=== PATIENT | male | born 1970 | race Caucasian/White ===

== ENCOUNTER → 2017-08-08 | Day surgery (SDC) | payer BC ==
[~2017-08-08] MED LIST: Acetaminophen/HYDROcodone 325-5 MG Tab PO PRN; Atropine 0.4 MG/ML SDV ONE; Lactated Ringers 1,000 ML IV SCH; Morphine 2 MG/ML Syringe IVPUSH PRN; Ondansetron 4 MG/2 ML SDV IVPUSH PRN; Propofol 200 MG/20 ML SDV ONE; Rocuronium 50 MG/5 ML Vial ONE; ceFAZolin 1 GM Vial ONE; ceFAZolin 1 GM in Sodium Chloride 0.9% 50 ML IV SCH; fentaNYL 250 MCG/5 ML SDV ONE
--- NOTE | 2017-08-08 16:51 | OR ---
DATE OF OPERATION: 08/08/2017 PREOPERATIVE DIAGNOSIS: Incarcerated umbilical hernia. POSTOPERATIVE DIAGNOSIS: Incarcerated umbilical hernia. OPERATION: Open umbilical herniorrhaphy, primary. COMPLICATIONS: None. DRAINS: None. SPECIMENS: None. ESTIMATED BLOOD LOSS: Approximately 5 mL. ANESTHESIA: General endotracheal anesthesia. PRODUCE TEAM MEMBER: Jennifer Butcher. INDICATION: Mr. Jones is a 46-year-old gentleman who has had a longstanding umbilical hernia which he feels has increased in size and can cause some discomfort from time to time. He has requested repair. The above-mentioned procedure was explained. The risks, benefits, complications were explained. Patient understood, and agreed. He was brought to the operating room. DESCRIPTION OF PROCEDURE: The patient was brought to the operating room, placed supine on the operating room table. Satisfactory general endotracheal anesthesia was administered. Preoperative antibiotics and DVT prophylaxis were administered. The abdomen was then prepped and draped in sterile fashion including the umbilicus. We made a semicircular infraumbilical incision and subsequently deepened down the tissues with Bovie electrocautery down to the level of the subcutaneous tissues. In doing so, we were able to easily identify the umbilical hernia sac. The sac was then easily dissected away from the subcutaneous tissues with a simple finger dissection as well as with [employer] Endo Adebayo. I was able to take the sac away from the skin using Metzenbaum Endo Adebayo as well as with Bovie electrocautery. Once this was released, we then circumferentially went around the sac using Bovie electrocautery and Metzenbaum Endo Adebayo and maintained hemostasis with Bovie electrocautery to clear away some of the tissue from the fascia. The neck of the sac was identified and the sac was then dissected along its neck to reveal preperitoneal fat. The preperitoneal fat was then very easily pushed down back into the belly including the hernia sac which was quite loose and this was easily accomplished. Hemostasis was achieved with Bovie electrocautery. This revealed the defect which was approximately 1-1.5 cm in size. I then began to close the defect and this was done using 2-0 Ethibond sutures in an interrupted fashion. Once this was accomplished, the defect appeared satisfactorily closed. We then thoroughly irrigated out the wound with warm normal saline. Hemostasis was achieved with Bovie electrocautery. I then placed a 3-0 Vicryl in a [id number] fashion at the mid point of the umbilical skin to reconstruct the umbilicus. Next, the incision was then closed using 3-0 Vicryl interrupted sutures in a deep dermal fashion, 4-0 Monocryl subcuticular suture in the skin, and Dermabond glue was applied. The patient was awoken in the OR and taken to the PACU for recovery. There were no complications. Instrument count was correct. Patient tolerated the procedure well. NELDA /[id number]
== END ==
LOC: LB.SDS 07:00
PROVIDERS: ATTEND Surgery
DX: K42.0 Umbilical hernia with obstruction, without gangrene (principal)
CPT/HCPCS: J0461; J2704; J3010; J7120

== ENCOUNTER 2021-10-05 17:17 | Emergency (ER) | payer BC | END 2021-10-05 18:08 | disposition home or self-care (01) | LOC: LB.ED 17:17 | DX: R51.9 Headache, unspecified (principal); I10 Essential (primary) hypertension; Z79.82 Long term (current) use of aspirin; Z79.899 Other long term (current) drug therapy | CPT/HCPCS: 99283 ==

== ENCOUNTER 2023-11-20 10:52 | Day surgery (SDC) | payer BC ==
[~2023-11-20 10:52] MED LIST changes: -Acetaminophen/HYDROcodone 325-5 MG Tab PO PRN; -Atropine 0.4 MG/ML SDV ONE; -Lactated Ringers 1,000 ML IV SCH; +Metoclopramide 10 MG/2 ML SDV IV PRN; -Morphine 2 MG/ML Syringe IVPUSH PRN; -Ondansetron 4 MG/2 ML SDV IVPUSH PRN; -Propofol 200 MG/20 ML SDV ONE; -Rocuronium 50 MG/5 ML Vial ONE; -ceFAZolin 1 GM Vial ONE; -ceFAZolin 1 GM in Sodium Chloride 0.9% 50 ML IV SCH; -fentaNYL 250 MCG/5 ML SDV ONE
[2023-11-20] MEDS: Sodium Chloride 0.9% 1,000 ML IV SCH (11:16)
== END 2023-11-20 15:01 | disposition home or self-care (01) ==
LOC: LB.SDS 10:52
PROVIDERS: ATTEND Surgery
DX: Z12.11 Encounter for screening for malignant neoplasm of colon (principal); I10 Essential (primary) hypertension
CPT/HCPCS: J2704; J7030